=== PATIENT | male | born 1975 | race Caucasian/White ===

== ENCOUNTER 2020-03-30 16:10 | Emergency (ER) | payer OTHER ==
[~2020-03-30] VITALS: Ht 180.3 cm; Wt 93.0 kg
[~2020-03-30 16:10] MED LIST: AMBIEN 10 MG TA10 MG PO; ATIVAN1 MG PO; ATORVASTATIN CA40 MG PO; AZITHROMYCIN 2250 MG PO; BENTYL 10 MG CA10 M1 PO; BUSPAR15 MG PO; FLEXERIL; HYDROCODON-ACE1 EACH; HYDROCODONE; HYZAAR 50-12.51 EACH PO; LEVAQUIN 500 M500 MG PO; NAPROSYN500 MG PO; NEURONTIN 300300 M1; NORCO 10-325 T1 EACH; NORCO 5-325 TA1 EACH PO; PAXIL10 MG PO; PRAVASTATIN SOD20 MG; PRAVASTATIN SOD20 MG PO; PRILOSEC40 MG PO; ROBAXIN 750 MG750 M1 PO; SYMBICORT160 MCG/4. INH; TOPROL XL25 MG PO; TRAMADOL 50 MG50 MG PO; ULTRAM 50MG TAB50 MG PO; VALIUM5 MG PO
[2020-03-30] MEDS ORDERED: ATIVAN1 M1 PO (16:20)
[2020-03-30] MEDS ORDERED: COZAAR 50 MG TA50 MG PO (16:20)
[2020-03-30] MEDS ORDERED: ROSUVASTATIN CA10 MG PO (16:23)
[2020-03-30 17:04] LABS: ABSOLUTE LYMPHOCYTES 1.2 thou/uL (0.8-5.3); ABSOLUTE NEUTROPHILS 7.7 thou/uL (1.6-8.1); BASOPHILS 0.3 %; EOSINOPHILS 0.1 %; HEMATOCRIT 52.6 % (42.0-52.0); LYMPHOCYTES 12.1 %; MCHC 34.2 g/dL (28.0-37.0); MCV 90.4 fL (80.0-100.0); MPV 7.4 fl. (7.2-11.1); NUCLEATED RBCS 0 /100WBC; PLATELET COUNT* 216 thou/uL (150-400); POLYS 77.5 %; RBC 5.82 mil/uL (4.50-6.00); RDW-CV 13.4 % (10.5-14.5)
--- NOTE | 2020-03-30 17:13 | EKG ---
[place] [address] ELECTROCARDIOGRAM REPORT Name: CLINT PAYNE Room: [facility]#: [id number] Admission: 03/30/20 Attend Phys: Discharge: Date of : 79 Date of Service: 03/30/20 1617 Report #: [id number] THIS REPORT FOR: //name// [facility] ED Test Date: 2020-03-30 Test Time: 16:17:34 Pat Name: CLINT PAYNE Department: Room: Gender: Fnp: [facility] [place] : 1975 Requested By: Aly Gilbert Order Number: [id number] MD: Robson Wiley Measurements Intervals [place] Rate: 73 P: 52 [place]: 175 QRS: 66 QRSD: 113 T: 35 QT: 382 QTc: 421 Interpretive Statements Sinus rhythm Incomplete right bundle branch block ST elevation suggests acute pericarditis Compared to ECG 04/10/2016 11:33:20 st segment elevation noted Electronically Signed On 03-30-2020 17:12:54 AURIST by Robson Wiley [email or web address] <ELECTRONICALLY SIGNED> By: Robson Wiley MD, [facility] 03/30/20 1712 1617 161 Robson Wiley MD, [facility] /EPI
[2020-03-30 17:17] LABS: POTASSIUM 3.7 mmol/L (3.5-5.1)
[2020-03-30 17:32] LABS: ALBUMIN 4.1 g/dL (3.4-5.0); MAGNESIUM 2.2 mg/dL (1.8-2.4); TOTAL BILIRUBIN 0.5 mg/dL (<0.1-1.0); TOTAL PROTEIN 7.7 g/dL (6.4-8.2)
[2020-03-30 21:24] VITALS: BP 128/84
--- NOTE | 2020-03-31 10:22 | EKG ---
[place] [address] ELECTROCARDIOGRAM REPORT Name: CLINT PAYNE Room: [facility]#: [id number] Admission: 03/30/20 Attend Phys: Discharge: 03/30/20 Date of : 79 Date of Service: 03/30/201943 Report #: [id number] THIS REPORT FOR: //name// [facility] ED Test Date: 2020-03-30 Test Time: 19:44:43 Pat Name: CLINT PAYNE Department: Room: Gender: Policy Change Clerk: : 1975 Requested By: Aly Gilbert Order Number: [id number] MD: Robson Wiley Measurements Intervals [place] Rate: 72 P: 31 [place]: 183 QRS: 69 QRSD: 106 T: 27 QT: 380 QTc: 416 Interpretive Statements Sinus rhythm Rsr' in V1 ST elevation, consider early repolarization Compared to ECG 03/30/2020 16:17:34 ST (T wave) deviation still present Electronically Signed On 03-31-2020 10:21:58 GEOPOLITICS TEACHER by Robson Wiley [email or web address] <ELECTRONICALLY SIGNED> By: Robson Wiley MD, FACC 03/31/20 1021 43 43 Robson Wiley MD, FAC /EPI
== END 2020-03-30 21:24 | disposition home or self-care (01) ==
LOC: M.ERS 16:10
PROVIDERS: Emergency Medicine Emergency Medical Services
DX: R07.89 Other chest pain (principal); R06.00 Dyspnea, unspecified; R06.02 Shortness of breath; Z20.828 Contact with and (suspected) exposure to other viral communicable diseases

== ENCOUNTER → 2020-04-17 | Outpatient (CLI) | payer OTHER ==
[~2020-04-17] MED LIST changes: +ATIVAN1 M1 PO; +COZAAR 50 MG TA50 MG PO; +ROSUVASTATIN CA10 MG PO
--- NOTE | 2020-04-17 16:07 | 2DMMODE ---
[place] [address] 2 D/M-MODE ECHOCARDIOGRAM Name: CLINT PAYNE Room: [facility]#: [id number] Admission: 04/17/20 Attend Phys: Kandace Molina, Discharge: Date of : 79 Date of Service: 04/17/20 1607 Report #: [id number] THIS REPORT FOR: cc: Suzanne Michelle Ghaison F. DO Holkins,Alex Cooney MD [facility] ~ APPROVED REPORT Study performed: 04/17/2020 14:53:00 EXAM: Comprehensive 2D, Doppler, and color-flow Echocardiogram Patient Location: Out-Patient BSA: 2.13 HR: 88 bpm BP: 105/83 mmHg Other Information Study Quality: Good Indications Dyspnea 2D Dimensions IVSd: 12.53 (7-11mm) LVOT Diam: 20.06 (18-24mm) LVDd: 46.68 mm PWd: 10.92 (7-11mm) Ascending Ao: 31.16 (22-36mm) LVDs: 27.24 (25-40mm) Aortic Root: 35.11 mm Volumes Left Atrial Volume (Systole) LA ESV Index: 15.70 mL/m2 Aortic Valve AoV Peak Goldy.: 1.23 m/s AO Peak Gr.: 6.04 mmHg LVOT Max P.64 mmHg AO Mean Gr.: 3.37 mmHg LVOT Mean P.90 mmHg LVOT Max V: 1.19 m/s AO V2 VTI: 18.85 cm LVOT Mean V: 0.79 m/s FAUZIA (VTI): 3.74 cm2 LVOT V1 VTI: 22.31 cm Mitral Valve E/A Ratio: 0.94 [place] [address] 2 D/M-MODE ECHOCARDIOGRAM Name: CLINT PAYNE Room: [facility]#: [id number] Admission: 04/17/20 Attend Phys: Kandace Molina, Discharge: Date of : 79 Date of Service: 04/17/20 1607 Report #: [id number] MV Decel. Time: 227.91 ms MV E Max Goldy.: 0.54 m/s MV PHT: 66.09 ms MVA (PHT): 3.33 cm2 TDI E/Lateral E': 4.91 E/Medial E': 4.91 Medial E' Goldy.: 0.11 m/s Lateral E' Goldy.: 0.11 m/s Pulmonary Valve PV Peak Goldy.: 0.99 m/s PV Peak Gr.: 3.94 mmHg Left Ventricle The left ventricle is normal size. There is normal LV segmental wall motion. Borderline concentric left ventricular hypertrophy. Left ventricular systolic function is normal. The left ventricular ejection fraction is within the normal range. LVEF is 60-65%. Grade I - abnormal relaxation pattern. Right Ventricle The right ventricle is normal size. The right ventricular systolic function is normal. Atria The left atrium size is normal. The right atrium size is normal. Aortic Valve The aortic valve is normal in structure. No aortic regurgitation is present. There is no aortic valvular stenosis. Mitral Valve The mitral valve is normal in structure. There is no mitral valve regurgitation noted. No evidence of mitral valve stenosis. Tricuspid Valve The tricuspid valve is normal in structure. There is no tricuspid valve regurgitation noted. Pulmonic Valve The pulmonary valve is normal in structure. There is no pulmonic valvular regurgitation. Great Vessels The aortic root is normal in size. IVC [place] [address] 2 D/M-MODE ECHOCARDIOGRAM Name: CLINT PAYNE Room: [facility]#: [id number] Admission: 04/17/20 Attend Phys: Kandace Molina, Discharge: Date of : 79 Date of Service: 04/17/20 1607 Report #: [id number] collapses >50% with inspiration. Pericardium There is no pericardial effusion. <Conclusion> The left ventricle is normal size. Borderline concentric left ventricular hypertrophy. Left ventricular systolic function is normal. The left ventricular ejection fraction is within the normal range. LVEF is 60-65%. Grade I - abnormal relaxation pattern. The right ventricle is normal size. The left atrium size is normal. The aortic valve is normal in structure. The mitral valve is normal in structure. The tricuspid valve is normal in structure. IVC is normal in size and collapses >50% with inspiration. There is no pericardial effusion. There is normal LV segmental wall motion. <ELECTRONICALLY SIGNED> By: Alex Sargent MD, FACC 04/17/20 1607 1607 160 Alex Sargent MD, FACC /INF
--- NOTE | 2020-04-17 17:06 | CARDNUC ---
[place] [address] CARDIAC NUCLEAR IMAGING REPORT Name: CLINT PAYNE Room: [facility]#: [id number] Admission: 04/17/20 Attend Phys: Kandace Molina, Discharge: Date of : 79 Date of Service: 04/17/20 1705 Report #: [id number] THIS REPORT FOR: cc: Suzanne Michelle Ghaison F. DO Liston, Michael J. MD [facility] ~ APPROVED REPORT Study performed: 04/17/2020 14:46:06 Exam: Nuclear Stress Test Indication: Chest pain, increased dyspnea, increased fatigue, palpitations, tachycardia, ABN EKG. Patient Location: Out-Patient Stress Tech: Tess Ponce Stress Nurse: Liana Carnes R.N. Ht: 5 ft 11 in Wt: 207 lbs BSA: 2.14 m2 BMI: 28.86 Medical History Medical History: Chest pain, dyspnea, ABN EKG, increased fatigue, palpitations, tachycardia, GERD, RBBB, asthma, DDD, possible pericarditis, PTSD, neuropathy, OA, BISHNU, sciatica, syncope, cervical spine surgery, lumbar fusion, past smoker. Medications: ASA 325 Mg, Losartan, Rosuvastatin. Allergies: Olmesartan. Cardiac Risk Factors: FHX of CAD, HTN, Hyperlipidemia, SOB, Past Smoker, ABN EKG, tachycardia, RBBB. Previous Cardiac Procedures: None Pretest Chest Pain Characteristics: No chest pain Exercise History: Physically active Physical Disabilities: OA, Lumbar fusion, cervical spine surgery, DDD. Meds Held (24 hrs): None Stress Test Details Stress Test: Pharmacologic stress testing performed using 0.4 mg of regadenoson per 5 mL given IV over 10 seconds. Reason for pharmacologic stress test: OA, Lumbar fusion, cervical spine surgery, DDD, dyspnea.. HR Resting HR: 67 bpm Max Heart Rate (APMHR): 177 bpm Max HR Achieved: 129 bpm Target HR (85% APMHR): 150 [place] [address] CARDIAC NUCLEAR IMAGING REPORT Name: CLINT PAYNE Room: [facility]#: [id number] Admission: 04/17/20 Attend Phys: Kandace Molina, Discharge: Date of : 79 Date of Service: 04/17/20 1705 Report #: [id number] % of APMHR: 72 Recovery HR: 71 bpm BP Resting BP: 105/83 mmHg Max BP: 159/71 mmHg ECG Resting ECG: Sinus Rhythm Stress ECG: Sinus Tachycardia ST Change: None Arrhythmia: None Recovery ECG: Sinus Rhythm Recovery ST Change: None Recovery Arrhythmia: None Clinical Reason for Termination: Completed protocol, Maximal effort, Patient Request, Dyspnea. Stress Symptoms: Dyspnea, head pressure. Exercise duration: 9 min 50 sec Exercise capacity: 11.50 METs Overall Exercise Capacity for Age: Borderline Reduced to Normal. The patient failed to meet target heart rate on standard Tristan protocol exercise due to dyspnea and fatigue although he was able to exercise for 9 minutes and 50 seconds. The patient tolerated walking Lexiscan protocol without significant symptoms. Nurse Comments A 45 year old male presented for a treadmill Nuclear Stress Test r/t chest pain, increased dyspnea, increased fatigue, palpitations, ABN EKG. Treadmill tolerated to Stage 3 when patient had not reached target heart rate, he wanted to quit saying he could not breath or catch his breath. Test changed at that time to a walking Lexiscan to complete test. Recovery extended to reach needed lower heart rate. Patient was stable and stated he felt good when escorted to ECHO then to Nuclear Medicine for imaging. Exercise capacity rate borderline reduced to lower normal. Stress ECG Conclusion The baseline EKG shows sinus rhythm without significant ST segment abnormality. EKGs obtained during and post stress show sinus rhythm and sinus tachycardia with no significant ST segment or T wave changes when compared to baseline. There were no stress-[place] [address] CARDIAC NUCLEAR IMAGING REPORT Name: CLINT PAYNE Room: [facility]#: [id number] Admission: 04/17/20 Attend Phys: Kandace Molina, Discharge: Date of : 79 Date of Service: 04/17/20 1705 Report #: [id number] NM EXAM: Myocardial Perfusion REST/STRESS Imaging Protocol: Rest Tc-99m/Stress Tc-99m 1 day Resting Data Rest SPECT myocardial perfusion imaging was performed in supine position 30 minutes following the intravenous injection of 9.3 mCi of Tc-99m Sestamibi. Time of rest injection: 13:10 The images were gated to evaluate regional wall motion and calculate left ventricular ejection fraction. Administration Route: IV Administration Site: Right Hand Pharmacologic Stress Pharmacologic stress test was performed by injecting Regadenoson 0.4 mg IV push followed by the intravenous injection of 32.1 mCi of Tc-99m Sestamibi. Time of stress injection: 14:55 Administration Route: IV Administration Site: Right Hand Heart Rate at time of stress injection: 129 bpm. Gated Stress SPECT was performed 55 minutes after stress injection. The images were gated to evaluate regional wall motion and calculate left ventricular ejection fraction. Prone imaging was performed. Study Quality Study: Good Artifact: No artifact Study Data At rest, the left ventricular ejection fraction was 71%.. Post stress, the left ventricular ejection was 83%.. TID = 0.83. Perfusion Perfusion images obtained at rest and post stress show uniform uptake of the radioisotope throughout the myocardium. Wall Motion Normal left ventricular wall motion. Nuclear Conclusion ECG Findings: negative for ischemia Clinical Findings: negative [place] [address] CARDIAC NUCLEAR IMAGING REPORT Name: CLINT PAYNE Room: [facility]#: [id number] Admission: 04/17/20 Attend Phys: Kandace Molina, Discharge: Date of : 79 Date of Service: 04/17/20 1705 Report #: [id number] Nuclear Findings: negative for ischemia Exercise Capacity: Not fully assessed Left Ventricular Function: normal Risk Study: low Perfusion studies show no defect to suggest infarct or ischemia. Left ventricular systolic function appears normal on gated studies. This is a low risk study. <Conclusion> The baseline EKG shows sinus rhythm without significant ST segment abnormality. EKGs obtained during and post stress show sinus rhythm and sinus tachycardia with no significant ST segment or T wave changes when compared to baseline. There were no stress-induced arrhythmias. <ELECTRONICALLY SIGNED> By: Arturo Méndez MD, FACC 04/17/20 1705 170 04 Arturo Méndez MD, FACC /INF
== END ==
LOC: M.NUC 12:57
PROVIDERS: ATTEND Internal Medicine
DX: R94.31 Abnormal electrocardiogram [ECG] [EKG] (principal)

== ENCOUNTER 2021-02-16 14:33 | Emergency (ER) | payer OTHER ==
[~2021-02-16] VITALS: Ht 182.9 cm; Wt 99.8 kg
[2021-02-16] MEDS ORDERED: TESTOSTERO30 MG/1.5 (14:49)
[2021-02-16 15:09] LABS: ABSOLUTE BASOPHILS 0.1 thou/uL (0.0-0.2); ABSOLUTE EOSINOPHILS 0.1 thou/uL (0.0-0.7); ABSOLUTE LYMPHOCYTES 1.4 thou/uL (0.8-5.3); ABSOLUTE MONOCYTES 0.7 thou/uL (0.0-1.2); ABSOLUTE NEUTROPHILS 5.1 thou/uL (1.6-8.1); BASOPHILS 0.9 %; HEMATOCRIT 51.7 % (42.0-52.0); HEMOGLOBIN 17.9 gm/dL (14.0-18.0); LYMPHOCYTES 19.6 %; MCH 30.6 pg (26.0-34.0); MCHC 34.7 g/dL (28.0-37.0); MCV 88.3 fL (80.0-100.0); MONOCYTES 9.4 %; MPV 7.4 fl. (7.2-11.1); NUCLEATED RBCS 0 /100WBC; PLATELET COUNT* 188 thou/uL (150-400); POLYS 69.1 %; RBC 5.85 mil/uL (4.50-6.00); RDW-CV 13.6 % (10.5-14.5); WBC 7.3 thou/uL (4.0-11.0)
[2021-02-16 15:30] LABS: CALCIUM 8.7 mg/dL (8.5-10.1); POTASSIUM 3.7 mmol/L (3.5-5.1); TOTAL BILIRUBIN 0.9 mg/dL (<0.1-1.0); TOTAL PROTEIN 7.6 g/dL (6.4-8.2)
[2021-02-16] MEDS ORDERED: TESSALON PERLE100 MG PO (17:04)
[2021-02-16] MEDS ORDERED: PROMETHAZI6.25 MG/5 PO (17:04)
[2021-02-16] MEDS ORDERED: APAP W/CODEINE1 TA2 PO (17:04)
[2021-02-16 17:20] VITALS: BP 132/79
--- NOTE | 2021-02-17 13:23 | EKG ---
[place] [address] ELECTROCARDIOGRAM REPORT Name: CLINT PAYNE Room: [facility]#: [id number] Admission: 02/16/21 Attend Phys: Discharge: 02/16/21 Date of : 79 Date of Service: 02/16/21 1438 Report #: [id number] THIS REPORT FOR: //name// [facility] ED Test Date: 2021-02-16 Test Time: 14:38:58 Pat Name: CILNT PAYNE Department: Room: Gender: Packaging Manager: : 1975 Requested By: Nallely Byrd Order Number: [id number] MD: Arturo Méndez Measurements Intervals [place] Rate: 71 P: 17 NE: 173 QRS: 55 QRSD: 113 T: 10 QT: 373 QTc: 406 Interpretive Statements Sinus rhythm Incomplete right bundle branch block ST elevation, consider early repolarization borderline ST elevation, anterior leads Compared to ECG 03/30/2020 19:44:43 Incomplete right bundle-branch block now present ST (T wave) deviation still present Electronically Signed On 02-17-2021 13:23:24 CDT by Arturo Méndez [email or web address] <ELECTRONICALLY SIGNED> By: Arturo Méndez MD, FACC 02/17/21 1323 1438 1438 Arturo Méndez MD, FACC /EPI
== END 2021-02-16 17:20 | disposition home or self-care (01) ==
LOC: M.ERS 14:33
PROVIDERS: Physician Assistant
DX: J06.9 Acute upper respiratory infection, unspecified (principal); Z20.822 Contact with and (suspected) exposure to COVID-19; F41.9 Anxiety disorder, unspecified; Z98.890 Other specified postprocedural states; Z87.891 Personal history of nicotine dependence; Z79.899 Other long term (current) drug therapy

== ENCOUNTER 2021-03-05 14:05 | Emergency (ER) | payer OTHER ==
[~2021-03-05] VITALS: Ht 180.3 cm; Wt 99.8 kg
[~2021-03-05 14:05] MED LIST changes: +APAP W/CODEINE1 TA2 PO; +PROMETHAZI6.25 MG/5 PO; +TESSALON PERLE100 MG PO; +TESTOSTERO30 MG/1.5
[2021-03-05 15:20] LABS: INFLUENZA A ANTIGEN Negative (Negative); INFLUENZA B ANTIGEN Negative (Negative)
[2021-03-05 16:01] LABS: ABSOLUTE EOSINOPHILS 0.2 thou/uL (0.0-0.7); ABSOLUTE LYMPHOCYTES 1.5 thou/uL (0.8-5.3); ABSOLUTE MONOCYTES 0.7 thou/uL (0.0-1.2); ABSOLUTE NEUTROPHILS 3.9 thou/uL (1.6-8.1); BASOPHILS 0.5 %; EOSINOPHILS 2.7 %; HEMATOCRIT 53.9 % (42.0-52.0); HEMOGLOBIN 18.5 gm/dL (14.0-18.0); LYMPHOCYTES 23.8 %; MCH 30.5 pg (26.0-34.0); MCHC 34.3 g/dL (28.0-37.0); MCV 88.9 fL (80.0-100.0); MONOCYTES 11.3 %; MPV 7.5 fl. (7.2-11.1); NUCLEATED RBCS 1 /100WBC; PLATELET COUNT* 177 thou/uL (150-400); POLYS 61.7 %; RBC 6.06 mil/uL (4.50-6.00); RDW-CV 14.3 % (10.5-14.5); WBC 6.3 thou/uL (4.0-11.0)
[2021-03-05 16:22] LABS: CALCIUM 8.8 mg/dL (8.5-10.1); POTASSIUM 4.2 mmol/L (3.5-5.1)
[2021-03-05 16:38] LABS: ALBUMIN 4.1 g/dL (3.4-5.0); CK-MB MASS 1.5 ng/mL (<0.5-3.6); MAGNESIUM 2.2 mg/dL (1.8-2.4); TOTAL BILIRUBIN 0.7 mg/dL (<0.1-1.0); TOTAL PROTEIN 7.9 g/dL (6.4-8.2)
[2021-03-05 18:37] VITALS: BP 111/80
--- NOTE | 2021-03-06 08:51 | EKG ---
[place] [address] ELECTROCARDIOGRAM REPORT Name: CLINT PAYNE Room: [facility]#: [id number] Admission: 03/05/21 Attend Phys: Discharge: 03/05/21 Date of : 79 Date of Service: 03/05/21 1447 Report #: [id number] THIS REPORT FOR: //name// [facility] ED Test Date: 2021-03-05 Test Time: 14:47:08 Pat Name: CLINT PAYNE Department: Room: Gender: Stove Cleaner: TDS : 1975 Requested By: Cuca Daly Order Number: [id number] MD: Arturo Méndez Measurements Intervals [place] Rate: 89 P: 45 [place]: 167 QRS: 93 QRSD: 110 T: 25 QT: 340 QTc: 414 Interpretive Statements Sinus rhythm Probable left atrial enlargement Incomplete right bundle branch block ST elev, probable normal early repol pattern Compared to ECG 02/16/2021 14:38:58 No significant changes noted Electronically Signed On 03-06-2021 8:50:54 GLASS BLOWER by Arturo Méndez [email or web address] <ELECTRONICALLY SIGNED> By: Arturo Méndez MD, FACC 03/06/21 0850 1447 1447 Arturo Méndez MD, FAC /EPI
== END 2021-03-05 18:37 | disposition home or self-care (01) ==
LOC: M.ERS 14:05
PROVIDERS: Family Medicine; Nurse Practitioner Family
DX: R07.89 Other chest pain (principal); Z20.822 Contact with and (suspected) exposure to COVID-19; F41.9 Anxiety disorder, unspecified; I10 Essential (primary) hypertension; Z79.899 Other long term (current) drug therapy; Z87.891 Personal history of nicotine dependence

== ENCOUNTER 2021-04-28 21:36 | Emergency (ER) | payer OTHER ==
[~2021-04-28] VITALS: Ht 180.3 cm; Wt 99.8 kg
[2021-04-28 23:22] LABS: ABSOLUTE EOSINOPHILS 0.1 thou/uL (0.0-0.7); ABSOLUTE LYMPHOCYTES 0.3 thou/uL (0.8-5.3); ABSOLUTE MONOCYTES 0.8 thou/uL (0.0-1.2); ABSOLUTE NEUTROPHILS 5.5 thou/uL (1.6-8.1); BASOPHILS 0.3 %; EOSINOPHILS 1.1 %; HEMATOCRIT 52.9 % (42.0-52.0); HEMOGLOBIN 18.3 gm/dL (14.0-18.0); LYMPHOCYTES 5.1 %; MCH 30.1 pg (26.0-34.0); MCHC 34.6 g/dL (28.0-37.0); MONOCYTES 11.3 %; MPV 7.3 fl. (7.2-11.1); NUCLEATED RBCS 0 /100WBC; PLATELET COUNT* 125 thou/uL (150-400); POLYS 82.2 %; RBC 6.08 mil/uL (4.50-6.00); RDW-CV 14.4 % (10.5-14.5); WBC 6.7 thou/uL (4.0-11.0)
[2021-04-28 23:32] LABS: CALCIUM 8.5 mg/dL (8.5-10.1); CREATININE 1.2 mg/dL (0.6-1.3); POTASSIUM 3.9 mmol/L (3.5-5.1)
[2021-04-28 23:40] LABS: INFLUENZA A ANTIGEN Negative (Negative); INFLUENZA B ANTIGEN Negative (Negative); TOTAL BILIRUBIN 0.6 mg/dL (<0.1-1.0); TOTAL PROTEIN 7.7 g/dL (6.4-8.2)
[2021-04-29] MEDS ORDERED: DECADRON6 MG PO (01:32)
[2021-04-29] MEDS ORDERED: PROAIR HFA8.5 GM INH (01:32)
[2021-04-29 01:56] VITALS: BP 141/73
--- NOTE | 2021-04-29 10:16 | EKG ---
[place] [address] ELECTROCARDIOGRAM REPORT Name: CLINT PAYNE Room: [facility]#: [id number] Admission: 04/28/21 Attend Phys: Discharge: 04/29/21 Date of : 79 Date of Service: 04/28/212242 Report #: [id number] THIS REPORT FOR: //name// [facility] ED Test Date: 2021-04-28 Test Time: 22:43:30 Pat Name: CLINT PAYNE Department: Room: Gender: Supervisor Rice Milling: : 1975 Requested By: Cuca Daly Order Number: [id number] MD: Robson Wiley Measurements Intervals [place] Rate: 120 P: 61 [place]: 185 QRS: 124 QRSD: 108 T: 7 QT: 299 QTc: 423 Interpretive Statements Sinus tachycardia Probable left atrial enlargement Consider right ventricular hypertrophy Compared to ECG 03/05/2021 14:47:08 Sinus rhythm no longer present ST (T wave) deviation still present Electronically Signed On 04-29-2021 10:16:44 DIE CASTING MACHINE MAINTAINER by Robson Wiley [email or web address] <ELECTRONICALLY SIGNED> By: Robson Wiley MD, FACC 04/29/21 1016 2243 2243 Robson Wiley MD, [facility] /EPI
== END 2021-04-29 01:57 | disposition home or self-care (01) ==
LOC: M.ERS 21:36
PROVIDERS: Nurse Practitioner Family
DX: U07.1 COVID-19 (principal); F41.9 Anxiety disorder, unspecified; I10 Essential (primary) hypertension; Z79.899 Other long term (current) drug therapy; Z87.891 Personal history of nicotine dependence

== ENCOUNTER 2021-05-09 19:21 | Emergency (ER) | payer OTHER ==
[~2021-05-09] VITALS: Ht 180.3 cm; Wt 99.8 kg
[~2021-05-09 19:21] MED LIST changes: +DECADRON6 MG PO; +PROAIR HFA8.5 GM INH
[2021-05-09] MEDS ORDERED: VITAMIN B12-FO1 EAC1 PO (19:34)
[2021-05-09] MEDS ORDERED: VITAMIN D250 MCG PO (19:35)
[2021-05-09 20:05] LABS: ABSOLUTE MONOCYTES 0.6 thou/uL (0.0-1.2); ABSOLUTE NEUTROPHILS 5.3 thou/uL (1.6-8.1); BASOPHILS 0.3 %; EOSINOPHILS 0.2 %; HEMATOCRIT 52.6 % (42.0-52.0); LYMPHOCYTES 14.7 %; MCHC 34.2 g/dL (28.0-37.0); MCV 87.7 fL (80.0-100.0); MONOCYTES 9.3 %; MPV 7.4 fl. (7.2-11.1); NUCLEATED RBCS 0 /100WBC; PLATELET COUNT* 224 thou/uL (150-400); POLYS 75.5 %; RDW-CV 14.4 % (10.5-14.5)
[2021-05-09 20:09] LABS: CALCIUM 8.2 mg/dL (8.5-10.1); CREATININE 1.1 mg/dL (0.6-1.3); POTASSIUM 3.7 mmol/L (3.5-5.1)
[2021-05-09 20:19] LABS: ALBUMIN 3.4 g/dL (3.4-5.0); MAGNESIUM 2.2 mg/dL (1.8-2.4); TOTAL BILIRUBIN 0.6 mg/dL (<0.1-1.0); TOTAL PROTEIN 6.8 g/dL (6.4-8.2)
[2021-05-09 21:05] VITALS: BP 122/60
--- NOTE | 2021-05-10 12:21 | EKG ---
[place] [address] ELECTROCARDIOGRAM REPORT Name: CLINT PAYNE Room: [facility]#: [id number] Admission: 05/09/21 Attend Phys: Discharge: 05/09/21 Date of : 79 Date of Service: 05/09/211927 Report #: [id number] THIS REPORT FOR: //name// [facility] ED Test Date: 2021-05-09 Test Time: 19:28:01 Pat Name: CLINT PAYNE Department: Room: Gender: Head Porter Baggage: : 1975 Requested By: Shelley Mason Order Number: [id number] MD: Robson Wiley Measurements Intervals [place] Rate: 87 P: 55 [place]: 165 QRS: 110 QRSD: 110 T: 31 QT: 348 QTc: 419 Interpretive Statements Sinus rhythm RBBB Compared to ECG 04/28/2021 22:43:30 Sinus tachycardia no longer present Electronically Signed On 05-10-2021 12:20:55 APPRENTICE ARCHITECT by Robson Wiley [email or web address] <ELECTRONICALLY SIGNED> By: Robson Wiley MD, [facility] 05/10/21 1220 27 Robson Wiley MD, [facility] /EPI
== END 2021-05-09 21:05 | disposition home or self-care (01) ==
LOC: M.ERS 19:21
PROVIDERS: Emergency Medicine
DX: R00.2 Palpitations (principal); F41.9 Anxiety disorder, unspecified; I10 Essential (primary) hypertension; Z79.899 Other long term (current) drug therapy; Z87.891 Personal history of nicotine dependence

== ENCOUNTER → 2021-06-07 | Outpatient (CLI) | payer OTHER ==
[~2021-06-07] MED LIST changes: +VITAMIN B12-FO1 EAC1 PO; +VITAMIN D250 MCG PO
[2021-06-07 16:42] LABS: ALBUMIN 4.4 g/dL (3.4-5.0); ALKALINE PHOSPHATASE 81 U/L (46-116); CHOLESTEROL 146 mg/dL (<200); CK-MB MASS 1.4 ng/mL (<0.5-3.6); DIRECT BILIRUBIN 0.2 mg/dL (<0.1-0.3); HDL CHOLESTEROL 59 mg/dL (>40); LDL CHOLESTEROL 76 mg/dL (<100); NT-PRO BRAIN NAT PEPTIDE 19 pg/mL (<300); SERUM ASSESSMENT Clear; SGOT 23 U/L (15-37); SGPT 39 U/L (30-65); TC:HDL 2.5 Ratio (Not establshd); TOTAL BILIRUBIN 0.8 mg/dL (<0.1-1.0); TOTAL PROTEIN 7.9 g/dL (6.4-8.2); TRIGLYCERIDE 59 mg/dL (<150); VLDL 12 mg/dL (<40)
== END ==
LOC: M.LAB 15:50
PROVIDERS: ATTEND Internal Medicine
DX: E78.00 Pure hypercholesterolemia, unspecified (principal); R07.9 Chest pain, unspecified; R06.02 Shortness of breath

== ENCOUNTER → 2021-06-08 | Outpatient (CLI) | payer OTHER | LOC: M.RAD 11:59 | PROVIDERS: ATTEND Internal Medicine | DX: R06.02 Shortness of breath (principal) ==